=== PATIENT | female | born 1990 | race African-American/Black ===

== ENCOUNTER 2017-02-28 09:08 | Emergency (ER) | payer OTHER | END 2017-02-28 11:46 | disposition home or self-care (01) | LOC: FER 09:08 | DX: H66.91 Otitis media, unspecified, right ear (principal); H61.23 Impacted cerumen, bilateral; H60.91 Unspecified otitis externa, right ear; F17.210 Nicotine dependence, cigarettes, uncomplicated | CPT/HCPCS: J1885 ==